=== PATIENT | male | born 1965 | race Caucasian/White ===

== ENCOUNTER 2020-01-23 01:47 | Emergency (ER) | payer OTHER ==
[~2020-01-23] VITALS: Ht 172.7 cm; Wt 99.8 kg
--- NOTE | ~2020-01-23 | EKG ---
[facility] [address] [place] [address] ELECTROCARDIOGRAM REPORT Name: NEAL JOSEPH Room #: DEP DANTE Ordaz#: [id number] Admission: 01/23/20 Attend Phys: Discharge: 01/23/20 Date of : 63 Report #: [id number] <ELECTRONICALLY SIGNED> By: Jaron Carranza MD, FACC 01/23/20 1557 [id number] Jaron Carranza MD, FACC /EPI
[2020-01-23] MEDS ORDERED: LISINOPRIL10 MG PO (02:09)
[2020-01-23 02:48] LABS: BE(vivo) -0.8 mmol/L (-2 to +3); HCO3 21.2 mmol/L (22.0-26.0); PCO2 29.1 mmHg (35.0-45.0); PO2 60.2 mmHg (80.0-100.0); sO2 93.1 % (92.0-98.0)
[2020-01-23 02:52] LABS: ABSOLUTE NEUTROPHILS 3.6 thou/uL (1.4-8.2); BASOPHILS 0.4 % (0.0-2.0); EOSINOPHILS 0.3 % (0.0-3.0); HEMATOCRIT 48.5 % (42.0-52.0); HEMOGLOBIN 16.1 gm/dL (14.0-18.0); LYMPHOCYTES 16.8 % (24.0-44.0); MCH 29.3 pg (26.0-34.0); MCHC 33.1 g/dL (28.0-37.0); MCV 88.4 fL (80.0-100.0); MONOCYTES 7.7 % (1.0-8.0); PLATELET COUNT 166 thou/uL (150-400); POLYS 74.8 % (36.0-66.0); RBC 5.48 mil/uL (4.50-6.00); RDW 13.8 % (10.5-14.5); WBC 4.8 thou/uL (4.0-11.0)
[2020-01-23 02:56] LABS: ANION GAP 9 mmol/L (7-16); BUN 11 mg/dL (7-18); CALCIUM 8.3 mg/dL (8.5-10.1); CHLORIDE 101 mmol/L (98-107); CO2 27 mmol/L (21-32); CREATININE 0.9 mg/dL (0.7-1.3); GLUCOSE 114 mg/dL (74-106); POTASSIUM 3.6 mmol/L (3.5-5.1); SODIUM 137 mmol/L (136-145)
[2020-01-23 02:57] LABS: PROTIME 10.1 Seconds (9.3-11.4)
[2020-01-23 03:06] LABS: ALBUMIN 3.3 g/dL (3.4-5.0); MAGNESIUM 1.7 mg/dL (1.8-2.4); SGOT 85 U/L (15-37); SGPT 88 U/L (30-65); TOTAL BILIRUBIN 0.5 mg/dL (0.2-1.0); TOTAL PROTEIN 6.8 g/dL (6.4-8.2); TROPONIN-I <0.06 ng/mL (<0.06)
[2020-01-23] MEDS ORDERED: DOXYCYCLINE 10100 MG PO (04:05)
[2020-01-23] MEDS ORDERED: PREDNISONE 20 M20 MG PO (04:05)
[2020-01-23] MEDS ORDERED: VENTOLIN HFA 1818 GM INH (04:05)
[2020-01-23 04:23] VITALS: BP 151/73
== END 2020-01-23 04:52 | disposition home or self-care (01) ==
LOC: ER 01:47
PROVIDERS: Emergency Medicine
DX: U07.1 COVID-19 (principal); J12.89 Other viral pneumonia; I10 Essential (primary) hypertension; E66.9 Obesity, unspecified; Z79.899 Other long term (current) drug therapy; Z68.33 Body mass index [BMI] 33.0-33.9, adult

== ENCOUNTER 2020-01-27 09:54 | Inpatient (IN) | payer OTHER ==
[~2020-01-27] VITALS: Ht 152.4 cm; Wt 85.3 kg
[~2020-01-27 09:54] MED LIST: DOXYCYCLINE 10100 MG PO; LISINOPRIL10 MG PO; PREDNISONE 20 M20 MG PO; VENTOLIN HFA 1818 GM INH
[2020-01-27 10:01] VITALS: BP 179/96
[2020-01-27] MEDS ORDERED: QUINAPRIL HCL10 MG PO (10:06)
[2020-01-27 10:53] LABS: ABSOLUTE NEUTROPHILS 11.8 thou/uL (1.4-8.2); BASOPHILS 0.7 % (0.0-2.0); EOSINOPHILS 0.1 % (0.0-3.0); HEMATOCRIT 50.4 % (42.0-52.0); HEMOGLOBIN 16.6 gm/dL (14.0-18.0); LYMPHOCYTES 6.4 % (24.0-44.0); MCH 29.1 pg (26.0-34.0); PLATELET COUNT 302 thou/uL (150-400); POLYS 82.8 % (36.0-66.0); RBC 5.72 mil/uL (4.50-6.00); RDW 13.8 % (10.5-14.5)
[2020-01-27 10:57] LABS: POTASSIUM 3.7 mmol/L (3.5-5.1)
[2020-01-27 11:03] LABS: ALBUMIN 3.4 g/dL (3.4-5.0); TOTAL BILIRUBIN 0.9 mg/dL (0.2-1.0); TOTAL PROTEIN 7.1 g/dL (6.4-8.2)
[2020-01-27 12:00] VITALS: BP 170/80
[2020-01-27 12:15] LABS: URINE BILIRUBIN NEGATIVE (Negative); URINE BLOOD NEGATIVE (Negative); URINE CLARITY CLEAR; URINE COLOR YELLOW; URINE GLUCOSE-RANDOM* NEGATIVE (Negative); URINE KETONES NEGATIVE (Negative); URINE LEUKOCYTES-REFLEX NEGATIVE (Negative); URINE NITRITE-REFLEX NEGATIVE (Negative); URINE PROTEIN (DIPSTICK) NEGATIVE (Negative); URINE SPECIFIC GRAVITY <= 1.005 (1.005-1.035); URINE UROBILINOGEN 0.2 E.U./dl (0.2-1.0)
[2020-01-28 06:23] LABS: ABSOLUTE NEUTROPHILS 8.5 thou/uL (1.4-8.2); BASOPHILS 0.2 % (0.0-2.0); HEMATOCRIT 49.6 % (42.0-52.0); HEMOGLOBIN 16.5 gm/dL (14.0-18.0); LYMPHOCYTES 8.4 % (24.0-44.0); MCH 29.7 pg (26.0-34.0); MCHC 33.3 g/dL (28.0-37.0); MCV 89.2 fL (80.0-100.0); MONOCYTES 11.3 % (1.0-8.0); PLATELET COUNT 338 thou/uL (150-400); POLYS 80.1 % (36.0-66.0); RBC 5.56 mil/uL (4.50-6.00); RDW 13.7 % (10.5-14.5); WBC 10.6 thou/uL (4.0-11.0)
[2020-01-28 06:39] LABS: DIRECT BILIRUBIN 0.2 mg/dL (<0.1-0.2); PHOSPHORUS 4.4 mg/dL (2.5-4.9)
[2020-01-28 06:44] LABS: ALBUMIN 3.1 g/dL (3.4-5.0); CALCIUM 8.9 mg/dL (8.5-10.1); MAGNESIUM 2.2 mg/dL (1.8-2.4); POTASSIUM 4.6 mmol/L (3.5-5.1); TOTAL BILIRUBIN 0.6 mg/dL (0.2-1.0); TOTAL PROTEIN 6.6 g/dL (6.4-8.2)
[2020-01-28] MEDS ORDERED: LOPRESSOR50 PO (07:05)
[2020-01-28 07:24] VITALS: BP 166/95
--- NOTE | 2020-01-28 12:07 | HC ---
[facility] [place] [address] CONSULTATION Name: NEAL JOSEPH Room #: 170-1 ADM IN M.R.#: [id number] Admission: 01/27/20 Attend Phys: Juanito Hutchinson MD Discharge: Date of : 63 Report #: [id number] THIS REPORT FOR: cc: Amy Carreno MD, Nora P. MD Barry, Joseph W. MD ~ DATE OF SERVICE: 01/27/2020 INFECTIOUS DISEASE CONSULTATION ATTENDING PHYSICIAN: Dr. Hutchinson. REASON FOR EVALUATION: COVID-19 infection, complicated by pneumonitis. HISTORY OF SUBJECTIVE: Chart reviewed, patient examined. This is a 54-year-old gentleman with hypertension, who apparently was not feeling well, actually was tested last week, was found to have COVID positive. He worsened over the course of last 1-2 days with increasing dyspnea. He does admit to cough. He denies any significant fever. I do not believe he has had any significant pain associated with it as well. Again, he was confirmed to be positive by COVID antigen. Chest x-ray did show increasing bilateral peripheral pulmonary infiltrates is question of pneumonitis. ALLERGIES: None known. MEDICATIONS: Currently include lisinopril, azithromycin, zinc, thiamine, pantoprazole, methylprednisolone, enoxaparin, ascorbic acid, acetaminophen. PAST MEDICAL HISTORY: Hypertension. SOCIAL HISTORY: Nonsmoker, occasional ethanol, no illicit drug use. FAMILY HISTORY: Noncontributory. REVIEW OF SYSTEMS: Otherwise, unremarkable. PHYSICAL EXAMINATION: GENERAL: Appears ill, not overtly toxic, somewhat undernourished, pleasant, cooperative. VITAL SIGNS: Temperature 98.2, pulse 80, respirations 34, blood pressure 177/84. SKIN: Warm, dry, no rashes. HEENT: Normocephalic. Extraocular muscles intact. NECK: Supple. LUNGS: Few scattered coarse breath sounds. [facility] [address] [place] [address] CONSULTATION Name: NEAL JOSEPH Room #: 170-1 ADM IN [facility]#: [id number] Admission: 01/27/20 Attend Phys: Juanito Hutchinson MD Discharge: Date of : 63 Report #: [id number] HEART: Regular. I do not appreciate a murmur. ABDOMEN: Soft, nontender. EXTREMITIES: No cyanosis. GENITOURINARY AND RECTAL: Deferred. LABORATORY DATA: Chest x-ray described above. CBC: White count of 15.0, H and H 16.6 and 50.4, platelets of 302. Electrolytes: Sodium 138, potassium 3.7, chloride 103, bicarbonate is 27, anion gap of 8, BUN and creatinine 13 and 1.0. AST of 70, ALT of 153. Albumin of 3.4. Total protein of 7.1. Procalcitonin less than 0.05. D-dimer 3.43. ASSESSMENT: COVID-19 infection, complicated by pneumonitis. He is really having some evidence of respiratory failure. We will initiate on remdesivir, add ivermectin as well in the early period may be more benefit than later on. We will continue corticosteroids, vitamin package. Elevated LFTs could have some underlying issue. We will do acute hepatitis panel as well. Monitor expectantly. Continue oxygen support as needed. We will follow. <ELECTRONICALLY SIGNED> By: Herberth Wilkes MD 01/28/20 1207 [id number] [id number] Herberth Wilkes MD /nt
[2020-01-28 19:54] VITALS: BP 146/78
[2020-01-28 20:21] VITALS: BP 146/78
--- NOTE | 2020-01-28 20:29 | NUR ---
Attempted to call report to [facility]. Unable to take report. Will call [facility]
[2020-01-28 20:50] VITALS: BP 131/73
[2020-01-29 05:11] VITALS: BP 138/86
[2020-01-29 06:57] LABS: HEMATOCRIT 49.3 % (42.0-52.0); HEMOGLOBIN 16.3 gm/dL (14.0-18.0); MCH 29.4 pg (26.0-34.0); MCHC 33.1 g/dL (28.0-37.0); MCV 88.7 fL (80.0-100.0); RBC 5.56 mil/uL (4.50-6.00); RDW 14.1 % (10.5-14.5); WBC 17.6 thou/uL (4.0-11.0)
--- NOTE | 2020-01-29 07:03 | NUR ---
PATIENT CARES WERE ASSUMED AFTER THE TRANSFER. PATIENT WAS ASSESSED AND MEDS WERE PASSED.PATIENT IS POLISH SPEEKING ONLY. PATIENT DID SLEEP MOST OF THIS SHIFT. PATIENT HAD AND UNEVENTFUL TIME THIS SHIFT.
[2020-01-29 07:13] LABS: ALBUMIN 3.2 g/dL (3.4-5.0); CALCIUM 9.1 mg/dL (8.5-10.1); DIRECT BILIRUBIN 0.2 mg/dL (<0.1-0.2); PHOSPHORUS 4.3 mg/dL (2.6-4.7); POTASSIUM 4.4 mmol/L (3.5-5.1); TOTAL BILIRUBIN 0.7 mg/dL (0.2-1.0); TOTAL PROTEIN 6.7 g/dL (6.4-8.2)
[2020-01-29 07:45] VITALS: BP 138/82
[2020-01-29 11:17] VITALS: BP 162/89
--- NOTE | 2020-01-29 11:30 | NUR ---
Patient admits to [facility] with worsening symptons of COVID-19. Patient in enhanced isolation. Patient tested positive for COVID in community approx date of test Jan 18 or . Patient is upper sorbian speaking. is spancih speaking. Sp with dtr, reviewed role of casemgt. 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 PCP is Dr Amy Carreno. Dtr reports patient also goes to [facility]. Casemgt following for dc planning.
[2020-01-29 16:22] VITALS: BP 154/90
--- NOTE | 2020-01-29 17:09 | NUR ---
ASSUMED CARE OF PT AT 0700. PT ALERT AND ORIENTED, VERY LIMITED GERMAN. COMPLAINS OF SOA - MAINTAINING SPO2 ON 8L NC. CALLS APPROPRIATELY. USING URINAL. NO PROGRESS TOWARD POC AT THIS TIME.
[2020-01-29 21:14] VITALS: BP 130/81
[2020-01-30 00:07] LABS: HAV IgM AB (ANTI-HAV IgM) Negative (Negative); HEPATITIS B SURFACE AG Negative (Negative); HEPATITIS C VIRUS AB <0.1 (0.0-0.9)
[2020-01-30 04:57] LABS: HEMATOCRIT 48.2 % (42.0-52.0); MCH 29.5 pg (26.0-34.0); MCHC 33.1 g/dL (28.0-37.0); MCV 89.2 fL (80.0-100.0); RBC 5.4 mil/uL (4.50-6.00); RDW 14.1 % (10.5-14.5); WBC 13.4 thou/uL (4.0-11.0)
[2020-01-30 05:01] LABS: CALCIUM 8.6 mg/dL (8.5-10.1); CREATININE 0.9 mg/dL (0.7-1.3); DIRECT BILIRUBIN 0.2 mg/dL (<0.1-0.2); PHOSPHORUS 4.1 mg/dL (2.5-4.9); POTASSIUM 4.5 mmol/L (3.5-5.1); TOTAL BILIRUBIN 0.7 mg/dL (0.2-1.0); TOTAL PROTEIN 6.2 g/dL (6.4-8.2)
[2020-01-30 05:36] VITALS: BP 125/82
--- NOTE | 2020-01-30 06:46 | NUR ---
PT PLEASANT AND COOPERATIVE, COMMUNICATING VIA THIS RN'S LIMITED NAURUAN AND GOOGLE TRANSLATE, RESTING QUIETLY FOR MOST OF SHIFT, LABORED ON 7L NC, BUT DENIES PAIN
[2020-01-30 07:50] VITALS: BP 117/68
[2020-01-30 09:30] VITALS: BP 117/76
[2020-01-30 13:07] VITALS: BP 126/72
--- NOTE | 2020-01-30 13:51 | NUR ---
ZIGGY reviewed chart and spoke with nursing and attending physician. Pt remains in Enhanced Isolation due to COVID-19. Pt is afebrile and requiring 9L of O2. Pt is on IV abx and IV steroids. Pt is completing courses of Remdesivir and Ivermectin. No weekend discharge planned. ZIGGY notified by UR RN that pt may not have active insurance coverage. ZIGGY is following to assist as needed with discharge planning.
--- NOTE | 2020-01-30 18:45 | NUR ---
RN ASSUMED PT'S CARE AT 0700AM, PT IS A&OX3, BUT PT DOES NOT SPERKING TONGAN WELL, PT CAN FOLLOW SOME COMMANDS, PT IS ON 02 8-9L/MIN/NC TO KEEP O2SAT >93%, PT IS CONTINUING IV ABX, PT DENIES PAIN BY THIS TIME.
[2020-01-30 19:35] VITALS: BP 117/76
--- NOTE | 2020-01-30 22:10 | NUR ---
PT ALERT AND ORIENTED X4. PERSIAN SPEAKING. FOLLOWS GESTURES. SAT 89% ON 9 L. NC 925 ON 10LNC. BS DIMINISHED RR 24. NO C/O PAIN. WILLL CONTINUE TO MONITOR PT FOR CHANGES.
[2020-01-30 23:25] VITALS: BP 138/88
[2020-01-31 04:03] VITALS: BP 123/68
--- NOTE | 2020-01-31 04:40 | NUR ---
PT RESTING QUIELTLY. UNLABORED PRESENTLY. SAT 93% ON 10LNC.VSS.
[2020-01-31 04:43] LABS: HEMATOCRIT 50.6 % (42.0-52.0); HEMOGLOBIN 16.5 gm/dL (14.0-18.0); MCH 29.3 pg (26.0-34.0); MCHC 32.7 g/dL (28.0-37.0); MCV 89.8 fL (80.0-100.0); RBC 5.64 mil/uL (4.50-6.00); RDW 14.4 % (10.5-14.5); WBC 14.5 thou/uL (4.0-11.0)
[2020-01-31 04:45] LABS: CALCIUM 8.7 mg/dL (8.5-10.1); CREATININE 0.8 mg/dL (0.7-1.3); DIRECT BILIRUBIN 0.1 mg/dL (<0.1-0.2); PHOSPHORUS 4.1 mg/dL (2.6-4.7); POTASSIUM 4.5 mmol/L (3.5-5.1); TOTAL BILIRUBIN 0.6 mg/dL (0.2-1.0); TOTAL PROTEIN 6.4 g/dL (6.4-8.2)
--- NOTE | 2020-01-31 05:56 | NUR ---
PT PROGRESSING SLOWLY TOWARDS D/C GOALS. VSS. SATS 93% ON 10 LNC. RT TX DONE. PT RESTING QUIETL.
[2020-01-31 09:16] VITALS: BP 136/87
[2020-01-31 12:42] VITALS: BP 137/89
[2020-01-31 16:34] VITALS: BP 130/89
--- NOTE | 2020-01-31 17:48 | NUR ---
RN ASSUMED PT'S CARE AT 0700AM, PT IS A&OX3, PT HAS POOR MONGOLIAN, BUT PT CAN UNDERSTAND SOME QUESTIONS AND CAN FOLLOW MOST OF COMMANDS, PT IS ON HIGH FLOW O2 10L/MIN/NC, PT IS CONTINUING IV ABX, PT HAS SOB WITH EXERTION, PT'S VS ARE STABLE AT THIS TIME.
[2020-01-31 21:04] VITALS: BP 127/84
--- NOTE | 2020-01-31 21:57 | NUR ---
PT ALERT AND ORIENED X4 VSS HR TACHY AT START OF SHIFT . ENCOURAGED PT TO DRINK SOME FLUIDS. APPLE JUICE, ORANGE JUICE AND WATER GIVEN. TYLENOL GIVEN FOR RIB PAIN FROM COUGHING. PT RESTING QUIETLY PRESENTLY. HR BACK INTO 90S.
[2020-02-01 04:15] VITALS: BP 148/94
--- NOTE | 2020-02-01 04:54 | NUR ---
PT RESTING QUIETLY. NO S/S DISTRESS PRESENTLY ON 10LNC. VSS. BED DOWN CALL LIGHT IN REACH. BED ALARM ON.PROGRESSING TOWARDS D/C GOALS.
[2020-02-01 08:04] VITALS: BP 136/89
[2020-02-01 11:23] VITALS: BP 131/83
[2020-02-01 16:21] LABS: HEMATOCRIT 50.6 % (42.0-52.0); HEMOGLOBIN 16.5 gm/dL (14.0-18.0); MCH 29.2 pg (26.0-34.0); MCHC 32.6 g/dL (28.0-37.0); MCV 89.6 fL (80.0-100.0); PLATELET COUNT 395 thou/uL (150-400); RBC 5.65 mil/uL (4.50-6.00); RDW 14.2 % (10.5-14.5); WBC 17.1 thou/uL (4.0-11.0)
[2020-02-01 16:36] VITALS: BP 133/82
[2020-02-01 16:49] LABS: CREATININE 1.1 mg/dL (0.7-1.3); POTASSIUM 4.6 mmol/L (3.5-5.1)
[2020-02-01 17:04] LABS: CALCIUM 8.8 mg/dL (8.5-10.1)
[2020-02-01 17:28] LABS: ABSOLUTE NEUTROPHILS 15.4 thou/uL (1.4-8.2); ANISOCYTOSIS SLIGHT
--- NOTE | 2020-02-01 18:09 | NUR ---
RN ASSUMED PT'S CARE AT [facility] , PT IS A&O X3, PT IS ON O2 10L/MIN/NC, PT STILL HAS SOB WITH ACTIVIES, PT IS CONTINUING IV ABX, PT'S L CHEST PAIN HAS IMPROVED , PT GETS UP TO BATH ROOM BY HIMSELF.
[2020-02-01 21:15] VITALS: BP 130/89
--- NOTE | 2020-02-01 22:26 | NUR ---
PT SITTING ON EDGE OF BED, O2 PER NC. PT NOT SOA WHEN TALKING WIHT STAFF OR ON PHONE. PT ENCOURAGED TO USE URINAL AND KEEP O2 PER NC ON. PT PROVIDED HS SNACK. LUNGS WHEEZES.
[2020-02-02 05:36] VITALS: BP 130/84
[2020-02-02 06:16] LABS: HEMATOCRIT 51.9 % (42.0-52.0); HEMOGLOBIN 16.9 gm/dL (14.0-18.0); MCH 29.4 pg (26.0-34.0); MCHC 32.5 g/dL (28.0-37.0); MCV 90.3 fL (80.0-100.0); RBC 5.75 mil/uL (4.50-6.00); RDW 14.2 % (10.5-14.5); WBC 17.2 thou/uL (4.0-11.0)
[2020-02-02 06:33] LABS: CALCIUM 8.8 mg/dL (8.5-10.1); CREATININE 0.8 mg/dL (0.7-1.3); POTASSIUM 4.6 mmol/L (3.5-5.1)
--- NOTE | 2020-02-02 07:55 | EKG ---
[place] [address] [facility] [place] [address] ELECTROCARDIOGRAM REPORT Name: NEAL JOSEPH Room #: 364-P ADM IN M.R.#: [id number] Admission: 01/27/20 Attend Phys: Juanito Hutchinson MD Discharge: Date of : 63 Report #: [id number] [facility] ED Test Date: 2020-01-27 Test Time: 10:21:22 Pat Name: NEAL JOHNSTON Department: Room: Gender: M Day Care Worker: JCHAISHANNAN : 1965 Requested By: Kaiden Mendez Order Number: [id number] MD: Jaron Carranza Measurements Intervals [place] Rate: 74 P: -12 NC: 134 QRS: 32 QRSD: 110 T: 23 QT: 399 QTc: 443 Interpretive Statements Sinus rhythm Left ventricular hypertrophy Compared to ECG 01/23/2020 03:56:07 Left ventricular hypertrophy now present ST (T wave) deviation now present Electronically Signed On 01-27-2020 10:50:17 BPM DEVELOPER by Jaron Carranza [email or web address] <ELECTRONICALLY SIGNED> By: Jaron Carranza MD, [facility] 01/27/20 1050 1021 102 Jaron Carranza MD, FACC /EPI
[2020-02-02 08:41] VITALS: BP 132/96
[2020-02-02 11:24] VITALS: BP 136/88
--- NOTE | 2020-02-02 15:04 | NUR ---
PT ALERT AND ORIENTED TIMES FOUR. VSS. PT DENIES PAIN. STILL SOA WITH ACTIVITY. PT TOLERATES MEDS AND MEALS. WILL CONTINUE TO MONITOR.
[2020-02-02 16:15] VITALS: BP 134/72
--- NOTE | 2020-02-02 16:24 | NUR ---
ZIGGY reviewed chart and spoke with nursing and attending physician. Pt remains in Enhanced Isolation due to COVID-19. Pt is afebrile and requiring 8L of O2. Pt is on IV abx and IV steroids. ZIGGY placed call to pt's room. No answer. SW requested therapy evals to be ordered to assist with recommendations for discharge needs. Med Assist contacted to assist with Medicaid application/financial assistance, as pt does not have active insurance. ZIGGY is following to assist as needed with discharge planning.
[2020-02-02 20:35] VITALS: BP 129/73
[2020-02-03 04:29] VITALS: BP 146/88
--- NOTE | 2020-02-03 06:17 | NUR ---
PT RESTING QUIETLY. UNLABORED ON 8LNC . NO S/S DISTRESS. NO C/O PAIN TONIGHT. PROGRESSING TOWARDS D/C GOALS.
[2020-02-03 07:44] VITALS: BP 124/87
[2020-02-03 11:18] VITALS: BP 133/88
--- NOTE | 2020-02-03 11:44 | NUR ---
Pt seen for LOS. Noted appetite is doing well, consuming 100% of most meals. Wts are stable since admission. Skin is pink, moist, intake with no PU noted. Pt is at low nutritional risk.
--- NOTE | 2020-02-03 13:17 | NUR ---
PT CARE ASSUMED AT 0700, ALERT AND ORIENTED X4, TONGAN SPEAKING. DENIES ANY PAIN, NAUSEA AND VOMITTING. PT IS ON 8L OF OXYGEN, SOB WITH EXERTION. UP AD MAGALYS AT TIMES. DENIES ANY NEEDS AT MOMENT. PT IS SLOWLY PROGRESSING TOWARDS CARE.
--- NOTE | 2020-02-03 15:05 | NUR ---
ORDERS FOR EVAL AND TREAT. SPOKE WITH Pt WITH THE AID OF FAMILY MEMBER ON THE PHONE DUE TO LANGUAGE BARRIER. Pt HAVING NO DIFFICULTY WITH MOBILITY AND IS UP AD MAGALYS IN ROOM. OBSERVED Pt STAND AND AMBULATE IN THE ROOM WITHOUT DIFFICULTY. Pt DECLINING FORMAL P.T. EVAL BUT APPEARS SAFE FOR HOME WITH NO OTHER NEEDS.
--- NOTE | 2020-02-03 15:14 | NUR ---
SW reviewed chart and spoke with nursing and attending physician. Pt remains in Enhanced Isolation due to COVID-19. Pt is afebrile and on 8L of O2. Pt is on IV steroids. PT/OT ordered to evaluate pt for discharge needs. Pt does not have health insurance. Med Assist is following to assist with Medicaid application/financial assistance. SW is following to assist as needed with discharge planning.
[2020-02-03 15:38] VITALS: BP 132/76
[2020-02-03 19:24] VITALS: BP 127/69
--- NOTE | 2020-02-03 22:28 | NUR ---
PT RESTING IN BED WATCHING TV. O2 PER NC 8L. PT NOT SOA WHEN TALKING. LUNGS WITH WHEEZES. PT ENCOURAGED TO USE URINAL VERSUS. PT PROVIDED HS SNACK.
--- NOTE | 2020-02-03 23:44 | NUR ---
Pt reported short of air and frequent coughing. Provider notified and respiratory notified.
[2020-02-04 03:33] VITALS: BP 154/95
[2020-02-04 05:58] LABS: HEMATOCRIT 48.1 % (42.0-52.0); HEMOGLOBIN 15.9 gm/dL (14.0-18.0); MCH 29.9 pg (26.0-34.0); MCHC 33.1 g/dL (28.0-37.0); MCV 90.3 fL (80.0-100.0); RBC 5.32 mil/uL (4.50-6.00); RDW 14.3 % (10.5-14.5); WBC 14.3 thou/uL (4.0-11.0)
[2020-02-04 06:20] LABS: ALBUMIN 2.8 g/dL (3.4-5.0); CALCIUM 8.7 mg/dL (8.5-10.1); CREATININE 0.9 mg/dL (0.7-1.3); POTASSIUM 4.7 mmol/L (3.5-5.1); TOTAL BILIRUBIN 0.8 mg/dL (0.2-1.0); TOTAL PROTEIN 5.9 g/dL (6.4-8.2)
[2020-02-04 11:22] VITALS: BP 129/81
--- NOTE | 2020-02-04 14:12 | NUR ---
Case discussed with the care team and the attending. Discharge timeframe is uncertain. Pt still on 8liters of o2 and sob with activity. Cm continuing to follow for possible [place] referral [place] Pt has a pcp Amy Umanzor as well as previous usage of [facility] for f/u care. The pt does not have ins coverage for o2. Cm to check private pay cost or voucher for 1-2 months at dc if needed. Nuclear Power Plant Engineer attempted to reach the pt via phone without success. Will follow.
[2020-02-04 15:41] VITALS: BP 125/81
--- NOTE | 2020-02-04 18:41 | NUR ---
ASSUMED CARE OF P T AT 0700. PT AOX4 IN NO ACUTE DISTRESS. REMAINS ON 8L NC. BREATHING IMPROVING. CXR UNCHANGED. SLOW PROGRESS TOWARD POC GOALS.
[2020-02-04 19:58] VITALS: BP 128/82
--- NOTE | 2020-02-04 23:14 | NUR ---
PT WATCHING TV IN BED. PT O2 PER NC 8L. PT NOT SOA WITH TALKING. PT REQUESTED SNACK PRN FOR COUGH. LUNGS WITH WHEEZES.
[2020-02-05 04:27] VITALS: BP 147/92
--- NOTE | 2020-02-05 05:31 | NUR ---
ASSESSMENT: PT ASLEEP. ASSUMED CARE OF PT AT 0130, RECEIVED REPORT FROM SHANNAN ESPINOSA. VSS, AFEBRILE. DARK YELLOW UO PER URINAL. 8 LITERS CURRENTLY. SLOW PROGRESS TOWARDS DC GOALS, WILL CONTINUE TO MONITOR.
[2020-02-05 08:08] VITALS: BP 147/86
--- NOTE | 2020-02-05 08:20 | NUR ---
CARE ASSUMED AT 0700, PT ALERT AND ORIEUNTED X4, DENIES ANY PAIN, NAUSEA AND VOMITTING. PT ON 8L OF OXYGEN, SOME SOB WITH EXERTION. NO SIGNS OF DISTRESS. PT UP TO BATHROOM WITH O2. DENIES ANY NEEDS. PT IS SLOWLY PROGRESSING TOWARDS POC
[2020-02-05 11:40] VITALS: BP 144/78
--- NOTE | 2020-02-05 12:48 | NUR ---
ZIGGY reviewed chart and spoke with nursing and attending physician. Pt remains in Enhanced Isolation due to COVID-19. Pt is afebrile and on 8L of O2. Pt is on IV steroids. Possible weekend discharge anticipated. Pt may need home O2. ZIGGY placed call to pt's room. No answer. ZIGGY spoke with pt's dtr, Rosio, via phone ([phone]) to discuss discharge plan. Pt's dtr states they are agreeable with plan for pt to return home with O2 if needed. ZIGGY confirmed pt's home address. ZIGGY also notified pt's dtr that insurance termed on 01/11. Pt's dtr to call the insurance to see if there is an option to extend coverage or how they can get insurance reactivated. ZIGGY explained that [facility]ist has left ppwk for pt/family to complete for financial assistance[place]. Pt's dtr will follow up with pt and assist as needed. ZIGGY provided options for DME companies for home O2. No preference voiced. ZIGGY discussed with [facility] liaison of providing home O2 to pt, as he does not have any health insurance. [facility] is able to provide home O2 to pt. ZIGGY faxed demographic and clinical info to [facility] for review and confirmed info was received. Will need rest/exercise oximetry results and script faxed to [facility] when available. Pt's family will be able to provide transportation home when discharged. Pt has a PCP and follows up at [facility]. ZIGGY is following to assist as needed with discharge planning. [facility]--
[2020-02-05 15:25] VITALS: BP 137/76
[2020-02-05 21:50] VITALS: BP 141/88
[2020-02-06 03:00] VITALS: BP 145/91
--- NOTE | 2020-02-06 05:43 | NUR ---
PT IN [employer] SPIRITS AND IS ANTICIPATING TO DC OVER WEEKEND AND TO RETURN HOME WITH DME. PT CURRENTLY ON 6L 02. VSS, NO FEVERS AND NO COMPLAINTS OVERNIGHT.
[2020-02-06 08:32] VITALS: BP 139/96
[2020-02-06 13:08] VITALS: BP 141/87
--- NOTE | 2020-02-06 16:08 | NUR ---
PATIENT ALERT ORIENTED X4. PLEASANT WITH CARES. CONT ON ONXYGEN. WILL CONT WITH PLAN OF CARE.
[2020-02-06 16:30] VITALS: BP 132/79
[2020-02-06 21:17] VITALS: BP 129/74
[2020-02-07 03:20] VITALS: BP 144/79
--- NOTE | 2020-02-07 05:28 | NUR ---
continues on 6 liters. n/c tonight. lamin pain. maltese speaking mostly. no complaints, cooperative and pleasant.
[2020-02-07 11:59] VITALS: BP 138/87
--- NOTE | 2020-02-07 14:50 | NUR ---
PATIENT CONT TO IMPROVE TOWARDS DISCHARGE GOALS. HIS OXYGEN STAYED ABOVE 94% ON 1.5L AT THIS TIME. HE IS ALERT ORIENTED X4. PLEASANT WITH CARES. WILL CNOT WITH PLAN OF CARE.
[2020-02-07 15:43] VITALS: BP 141/80
[2020-02-07 19:52] VITALS: BP 140/83
--- NOTE | 2020-02-08 04:24 | NUR ---
PT AMBULATING TO BATHROOM INDEPENDENTLY AND IS TOLERATING WELL. DENIES PAIN. RESTING COMFORTAVLY. NO NEEDS VOICED. CALL LIGHT WITHIN REACH. FREQUENT OBSERVATION.
[2020-02-08 04:57] VITALS: BP 132/88
[2020-02-08 08:14] VITALS: BP 131/65
[2020-02-08 11:12] VITALS: BP 139/74
[2020-02-08 13:07] LABS: HEMATOCRIT 47.9 % (42.0-52.0); HEMOGLOBIN 15.6 gm/dL (14.0-18.0); MCH 29.3 pg (26.0-34.0); MCHC 32.5 g/dL (28.0-37.0); MCV 90.1 fL (80.0-100.0); RBC 5.31 mil/uL (4.50-6.00); RDW 14.3 % (10.5-14.5); WBC 14.1 thou/uL (4.0-11.0)
[2020-02-08 13:29] LABS: CALCIUM 8.8 mg/dL (8.5-10.1); MAGNESIUM 2.1 mg/dL (1.8-2.4); POTASSIUM 4.3 mmol/L (3.5-5.1)
[2020-02-08 16:06] VITALS: BP 132/71
--- NOTE | 2020-02-08 18:15 | NUR ---
CONT TO IMPROVE. TALKED TO DR ABOUT HIS HR WHICH CONT TO BE HIGH 120s. HE DENIES HEADACHE, CHEST PAIN OR SOB. HR REMAINS ELEVATED. SEE LABS. DR MENTIONED DOING A CTA POSSIBLY TO R/O PE. WILL CONT WITH PLAN OF CARE.
[2020-02-08 23:25] VITALS: BP 137/97
[2020-02-09 06:06] VITALS: BP 148/95
[2020-02-09 06:44] LABS: HEMATOCRIT 50.5 % (42.0-52.0); HEMOGLOBIN 16.6 gm/dL (14.0-18.0); MCH 29.7 pg (26.0-34.0); MCHC 32.9 g/dL (28.0-37.0); MCV 90.1 fL (80.0-100.0); RBC 5.6 mil/uL (4.50-6.00); RDW 14.2 % (10.5-14.5)
[2020-02-09 06:54] LABS: CALCIUM 9.2 mg/dL (8.5-10.1); CREATININE 0.9 mg/dL (0.7-1.3); MAGNESIUM 2.3 mg/dL (1.8-2.4)
[2020-02-09 08:42] VITALS: BP 137/79
[2020-02-09 11:38] VITALS: BP 138/89
--- NOTE | 2020-02-09 14:20 | NUR ---
ZIGGY reviewed chart and spoke with nursing and attending physician. Pt remains in Enhanced Isolation. Pt is afebrile and on 2L of O2. Pt is progressing towards goals for discharge. Rest/exercise oximetry ordered to evaluate pt for home O2 needs. Awaiting results at this time. [facility] is able to provide O2 for pt if needed. ZIGGY is following to assist as needed with discharge planning.
[2020-02-09 16:00] VITALS: BP 131/81
--- NOTE | 2020-02-09 19:41 | NUR ---
CONT TO HAVE STACH. OXYGEN NEEDS HAVE REMAINED STEADY TODAY. HE IS PLEASANT WITH CARES., WILL CONT TO [place] AND ASSIST NEEDED.
[2020-02-09 20:38] VITALS: BP 116/82
[2020-02-10 05:43] VITALS: BP 142/86
--- NOTE | 2020-02-10 07:12 | NUR ---
Pt seen for LOS. Noted appetite is doing well, consuming 100% of meals documented. Current wt is within 5% of admission wt. Skin remains intact with no PU noted. Pt remains at low nutrition risk.
[2020-02-10 07:37] VITALS: BP 145/86
--- NOTE | 2020-02-10 10:33 | 2DMMODE ---
[address] [address] 2 D/M-MODE ECHOCARDIOGRAM Name: NEAL JOSEPH Room #: 364-P ADM IN M.R.#: [id number] Admission: 01/27/20 Attend Phys: Juanito Hutchinson MD Discharge: Date of : 63 Report #: [id number] THIS REPORT FOR: cc: Amy Carreno MD, Nora P. MD Park, Jin S. MD ~ APPROVED REPORT Study performed: 02/10/2020 09:54:55 EXAM: Comprehensive 2D, Doppler, and color-flow Echocardiogram Patient Location: Bedside Room #: 364 Status: routine BSA: 1.82 HR: 116 bpm BP: 145/86 mmHg Rhythm: Tachycardia Other Information Study Quality: Good Indications Tachycardia Tachycardia in the presence of Covid 19 No change since echocardiogram done 12/19/2019 Left Ventricle The left ventricle is normal size. There is normal LV segmental wall motion. Mild concentric left ventricular hypertrophy. The left ventricular systolic function is normal. The left ventricular ejection fraction is within the normal range. LVEF is 60-65%. This study is not technically sufficient to allow evaluation of the LV diastolic function. Right Ventricle The right ventricle is normal size. The right ventricular systolic function is normal. Atria The left atrium size is normal. The right atrium size is normal. Aortic Valve [address] [place] [address] 2 D/M-MODE ECHOCARDIOGRAM Name: NEAL JOSEPH Room #: 364-P ADM IN M.R.#: [id number] Admission: 01/27/20 Attend Phys: Juanito Hutchinson MD Discharge: Date of : 63 Report #: [id number] The aortic valve is normal in structure. Mitral Valve The mitral valve is normal in structure. Tricuspid Valve The tricuspid valve is normal in structure. Pulmonic Valve The pulmonary valve is normal in structure. Great Vessels The aortic root is normal in size. IVC is normal in size and collapses >50% with inspiration. Pericardium There is no pericardial effusion. <Conclusion> The left ventricle is normal size. Mild concentric left ventricular hypertrophy. The left ventricular systolic function is normal. The right ventricle is normal size. The left atrium size is normal. The aortic valve is normal in structure. The mitral valve is normal in structure. <ELECTRONICALLY SIGNED> By: Boaz Balderas MD 02/10/20 1033 32 Boaz Balderas MD /INF
[2020-02-10 11:19] VITALS: BP 126/77
--- NOTE | 2020-02-10 12:57 | NUR ---
ZIGGY reviewed chart and spoke with nursing and attending physician. Pt remains in Enhanced Isolation due to COVID-19. Pt is afebrile and on 2L of O2. Pt is on PO meds. Cardiology consulted today. Echo completed. Awaiting rest/exercise oximetery to be completed to determine if pt needs home O2. ZIGGY spoke with pt's dtr, Rosio, via phone to provide update and discuss discharge plan. Pt's dtr states that financial ppwk left for pt is in Italian and pt is having a hard time completing the ppwk. Pt's dtr is willing to assist as needed. SW contacted [employer] to see if they have the ppwk available in Faroese. Or pt's dtr can be contacted by [facility] to complete ppwk. ZIGGY is following to assist as needed with discharge planning.
[2020-02-10 15:40] VITALS: BP 129/82
[2020-02-10 20:55] VITALS: BP 109/71
[2020-02-11 03:34] VITALS: BP 133/87
[2020-02-11 07:43] VITALS: BP 121/80
--- NOTE | 2020-02-11 13:52 | NUR ---
DISCHARGE NOTE: ZIGGY reviewed chart and spoke with nursing and attending physician. Pt is medically stable to discharge home today. Rest/exercise oximetry completed today. Pt does not qualify for home O2. Enhanced Isolation precautions can be discontinued. ZIGGY spoke with pt's dtr, Rosio, via phone to discuss discharge. ZIGGY informed Rosio that pt's insurance has been verified and updated. Pt's family to provide transportation home. Pt's nurse to contact Rosio when pt is ready for discharge. ZIGGY updated [facility] liaison that pt does not need home O2. No additional SW needs identified at this time, but is available to assist should needs arise.
[2020-02-11 14:09] VITALS: BP 121/80
[2020-02-11 14:15] VITALS: BP 121/80
--- NOTE | 2020-02-17 14:35 | NUR ---
ZIGGY received call from pt's dtr, Rosio Malloy ([phone]) who requests documentation from physician stating length that pt should be off from work/isolation precautions. ZIGGY provided Rosio with contact info for the hospitalist office for documentation. ZIGGY is available to assist should additional needs arise.
== END 2020-02-11 15:45 | disposition home or self-care (01) | DRG 871 ==
LOC: ER 09:54 → EROBS 11:33 → ER 11:33 → 3W 17:38 → EROBS 17:38 → 3W 01-28 20:58
PROVIDERS: Emergency Medicine; Internal Medicine; Nurse Practitioner; Specialist; ADMIT Hospitalist; ATTEND Hospitalist
PROC: XW033E5 Introduction of Remdesivir Anti-infective into Peripheral Vein, Percutaneous Approach, New Technology Group 5 (ICD-10-PCS; 2020-01-27)
PROC: 5A0935A Assistance with Respiratory Ventilation, Less than 24 Consecutive Hours, High Flow/Velocity Cannula (ICD-10-PCS; principal; 2020-01-29)
PROC: 5A0935A Assistance with Respiratory Ventilation, Less than 24 Consecutive Hours, High Flow/Velocity Cannula (ICD-10-PCS; 2020-01-30)
PROC: 5A09357 Assistance with Respiratory Ventilation, Less than 24 Consecutive Hours, Continuous Positive Airway Pressure (ICD-10-PCS; 2020-02-08)
DX: A41.89 Other specified sepsis (principal); J12.89 Other viral pneumonia; J80 Acute respiratory distress syndrome; U07.1 COVID-19; I10 Essential (primary) hypertension; R74.01 Elevation of levels of liver transaminase levels; I25.10 Atherosclerotic heart disease of native coronary artery without angina pectoris; T38.0X5A Adverse effect of glucocorticoids and synthetic analogues, initial encounter; T48.6X5A Adverse effect of antiasthmatics, initial encounter; Z79.899 Other long term (current) drug therapy; Y92.89 Other specified places as the place of occurrence of the external cause
CPT/HCPCS: 10879